=== PATIENT | female | born 1970 | race American Indian/Alaskan Native ===

== ENCOUNTER 2017-10-23 15:33 | Emergency (ER) | payer MEDICAID ==
[2017-10-23 16:29] VITALS: BP 99/66
--- NOTE | 2017-10-23 18:43 | Emergency Department Report ---
ED Rash HPI - HPI Chief Complaint: Skin Rash Stated Complaint: RASH Time Seen by Provider: 10/23/17 18:02 Duration: Today Location: Back, Abdomen, Upper Extremities Rash Symptoms: Yes Itching, Yes Peeling, No Facial Swelling, No Breathing Difficulties, No Choking Sensation, No Wheezing/Dyspnea, No Blistering, No Fever , No Lightheaded, No Malaise, No Myalgias Severity: moderate Other History: 47-year-old female past medical history anemia presents with complaint of approximately 3 weeks of itchy rash on upper extremities lower extremities chest abdomen and back. Patient denies fevers or chills. Patient is awake alert and oriented 3. States she has been taking Benadryl with minimal relief of her itchiness. Patient states that her dogs may have scabies. Denies any recent travel denies any new cosmetics denies any food allergies. Patient has visible excoriations on back abdomen and upper extremities. ED Review of Systems ROS: Stated complaint: RASH Other details as noted in HPI Constitutional: denies: chills, fever Eyes: denies: eye pain, eye discharge, vision change ENT: denies: ear pain, throat pain Respiratory: denies: cough, shortness of breath, wheezing Cardiovascular: denies: chest pain, palpitations Endocrine: no symptoms reported Gastrointestinal: denies: abdominal pain, nausea, diarrhea Genitourinary: denies: urgency, dysuria, discharge Musculoskeletal: denies: back pain, joint swelling, arthralgia Skin: denies: rash, lesions Neurological: denies: headache, weakness, paresthesias Psychiatric: denies: anxiety, depression Hematological/Lymphatic: denies: easy bleeding, easy bruising ED Past Medical Hx - Past Medical History Previous Medical History?: No Additional medical history: anemia, 3 vaginal delivery - Surgical History Hx Appendectomy: Yes Additional Surgical History: left eye, tubaligation - Social History Smoking Status: Never Smoker Substance Use Type: Alcohol - Medications Home Medications: Home Medications Medication Instructions Recorded Confirmed Last Taken Type Phenylephrine/Dm/Acetaminop/GG 1 each PO BID #14 tablet 03/02/15 Unknown Rx [Sudafed PE Pressure+Pain+Cold] Sea Salt/Citr/Cit AC/Bicarb/Av 1 each NS TID #14 powd.pack 03/02/15 Unknown Rx [Nasalcare Rinse Kit] Cetirizine HCl [ZyrTEC] 10 mg PO QDAY #30 capsule 10/23/17 Unknown Rx Hydroxyzine HCl 25 mg PO BID PRN #30 tablet 10/23/17 Unknown Rx Permethrin 5% [Acticin 5% CREAM] 1 applicatio TP ONCE #1 tube 10/23/17 Unknown Rx Triamcinolone 0.1% [Kenalog 0.1% 1 applic TP TID #1 tube 10/23/17 Unknown Rx OINT] Rash Exam - Exam General: Vital signs noted. No distress. Alert and acting appropriately. HEENT: No Periorbital Edema, No Conjuctival Injection, No Chemosis, No Perioral Edema, No Tongue Edema, No Uvular Edema, No Compromised Airway, No Drooling Lungs: Yes Good Air Exchange (Normal Breath Sounds), No Wheezes, No Ronchi, No Stridor, No Cough, No Labored Respirations, No Retractions, No Use of Accessory Muscles, No Other Abnormal Lung Sounds Heart: Yes Regular, No Murmur Skin: Yes Maculopapular Rash, Yes Excoriations, No Urticarial Rash, No Morbilliform rash, No Bulla(e), No Weeping, No Tenderness, No Erythema, No Edema , No Encrustations, No Other Other: Positive: Abdomen Normal, Neurologic Normal, Musculoskeletal Normal ED Course Vital Signs 10/23/17 16:25 Temperature 97.3 F L Pulse Rate 81 Respiratory 16 Rate Blood Pressure 99/66 O2 Sat by Pulse 100 Oximetry ED Medical Decision Making - Medical Decision Making A/P: Possible scabies rash 1-topical triamcinolone, hydroxyzine when necessary. Zyrtec 2-empiric course of permethrin cream as patient may have scabies. No other clear allergens identified 3-follow-up with dermatology and allergy specialists, primary care Critical care attestation.: If time is entered above; I have spent that time in minutes in the direct care of this critically ill patient, excluding procedure time. ED Disposition Clinical Impression: Scabies, Rash Disposition: - TO HOME OR SELFCARE Is pt being admited?: No Does the pt Need Aspirin: No Condition: Stable Instructions: Scabies (ED), Itchy Skin (ED) Prescriptions: Cetirizine HCl [ZyrTEC] 10 mg PO QDAY #30 capsule Hydroxyzine HCl 25 mg PO BID PRN #30 tablet PRN Reason: Itching Permethrin 5% [Acticin 5% CREAM] 1 applicatio TP ONCE #1 tube Triamcinolone 0.1% [Kenalog 0.1% OINT] 1 applic TP TID #1 tube Referrals: [facility] [Provider Group] - 3-5 Days [facility] [Provider Group] - 3-5 Days Time of Disposition: 18:41
== END 2017-10-23 18:51 | disposition home or self-care (01) ==
LOC: ED 15:33
DX: B86 Scabies (principal); R21 Rash and other nonspecific skin eruption; D64.9 Anemia, unspecified
CPT/HCPCS: 99282

== ENCOUNTER 2018-01-02 19:35 | Emergency (ER) | payer MEDICAID ==
[2018-01-02 20:21] VITALS: BP 116/67
[2018-01-02] MEDS ORDERED: MOTRIN PO ONE (23:57)
--- NOTE | 2018-01-03 00:03 | Emergency Department Report ---
ED ENT HPI - General Chief complaint: Earache Stated complaint: LEFT EAR,FACE PAIN Time Seen by Provider: 01/02/18 23:54 Source: patient Mode of arrival: Ambulatory Limitations: No Limitations - History of Present Illness Initial comments: 47-year-old female comes to the emergency room complaining of left ear pain for the last 2-3 days. Patient reports that she is having difficulty putting her ear buds into her ear. Patient denies any fever or nausea no vomiting. She reports that it feels like it is swollen and painful when she lays down. MD complaint: ear pain -: days(s) (3) Location: L ear Severity: moderate Severity scale (0 -10): 7 Quality: aching - Related Data Previous Rx's Medication Instructions Recorded Last Taken Type Phenylephrine/Dm/Acetaminop/GG 1 each PO BID #14 tablet 03/02/15 Unknown Rx [Sudafed PE Pressure+Pain+Cold] Sea Salt/Citr/Cit AC/Bicarb/Av 1 each NS TID #14 powd.pack 03/02/15 Unknown Rx [Nasalcare Rinse Kit] Cetirizine HCl [ZyrTEC] 10 mg PO QDAY #30 capsule 10/23/17 Unknown Rx Hydroxyzine HCl 25 mg PO BID PRN #30 tablet 10/23/17 Unknown Rx Permethrin 5% [Acticin 5% CREAM] 1 applicatio TP ONCE #1 tube 10/23/17 Unknown Rx Triamcinolone 0.1% [Kenalog 0.1% 1 applic TP TID #1 tube 10/23/17 Unknown Rx OINT] Neomycin/Polymyxin B/Hydrocort 4 drops OT QID #10 ml 01/02/18 Unknown Rx [Fvltobty-Ktktosgyz-Rt Ear Soln] Allergies Allergy/AdvReac Type Severity Reaction Status Date / Time No Known Allergies Allergy Verified 10/23/17 16:25 ED Dental HPI - General Chief complaint: Earache Stated complaint: LEFT EAR,FACE PAIN Time Seen by Provider: 01/02/18 23:54 Source: patient Mode of arrival: Ambulatory Limitations: No Limitations - Related Data Previous Rx's Medication Instructions Recorded Last Taken Type Phenylephrine/Dm/Acetaminop/GG 1 each PO BID #14 tablet 03/02/15 Unknown Rx [Sudafed PE Pressure+Pain+Cold] Sea Salt/Citr/Cit AC/Bicarb/Av 1 each NS TID #14 powd.pack 03/02/15 Unknown Rx [Nasalcare Rinse Kit] Cetirizine HCl [ZyrTEC] 10 mg PO QDAY #30 capsule 10/23/17 Unknown Rx Hydroxyzine HCl 25 mg PO BID PRN #30 tablet 10/23/17 Unknown Rx Permethrin 5% [Acticin 5% CREAM] 1 applicatio TP ONCE #1 tube 10/23/17 Unknown Rx Triamcinolone 0.1% [Kenalog 0.1% 1 applic TP TID #1 tube 10/23/17 Unknown Rx OINT] Neomycin/Polymyxin B/Hydrocort 4 drops OT QID #10 ml 01/02/18 Unknown Rx [Diislzxs-Dyknhsylb-Wa Ear Soln] Allergies Allergy/AdvReac Type Severity Reaction Status Date / Time No Known Allergies Allergy Verified 10/23/17 16:25 ED Review of Systems ROS: Stated complaint: LEFT EAR,FACE PAIN Other details as noted in HPI Constitutional: denies: chills, fever Eyes: denies: eye pain, eye discharge, vision change ENT: ear pain (left). denies: throat pain Respiratory: denies: cough, shortness of breath, wheezing Cardiovascular: denies: chest pain, palpitations Endocrine: no symptoms reported Gastrointestinal: denies: abdominal pain, nausea, diarrhea Genitourinary: denies: urgency, dysuria, discharge Musculoskeletal: denies: back pain, joint swelling, arthralgia Skin: denies: rash, lesions Neurological: denies: headache, weakness, paresthesias Psychiatric: denies: anxiety, depression Hematological/Lymphatic: denies: easy bleeding, easy bruising ED Past Medical Hx - Past Medical History Previous Medical History?: Yes Additional medical history: anemia, 3 vaginal delivery - Surgical History Past Surgical History?: Yes Hx Appendectomy: Yes Additional Surgical History: left eye, tubaligation - Social History Smoking Status: Current Every Day Smoker Substance Use Type: Alcohol - Medications Home Medications: Home Medications Medication Instructions Recorded Confirmed Last Taken Type Phenylephrine/Dm/Acetaminop/GG 1 each PO BID #14 tablet 03/02/15 Unknown Rx [Sudafed PE Pressure+Pain+Cold] Sea Salt/Citr/Cit AC/Bicarb/Av 1 each NS TID #14 powd.pack 03/02/15 Unknown Rx [Nasalcare Rinse Kit] Cetirizine HCl [ZyrTEC] 10 mg PO QDAY #30 capsule 10/23/17 Unknown Rx Hydroxyzine HCl 25 mg PO BID PRN #30 tablet 10/23/17 Unknown Rx Permethrin 5% [Acticin 5% CREAM] 1 applicatio TP ONCE #1 tube 10/23/17 Unknown Rx Triamcinolone 0.1% [Kenalog 0.1% 1 applic TP TID #1 tube 10/23/17 Unknown Rx OINT] Neomycin/Polymyxin B/Hydrocort 4 drops OT QID #10 ml 01/02/18 Unknown Rx [Vayoosng-Gbqxzkxsv-Oz Ear Soln] ED Physical Exam - General Limitations: No Limitations General appearance: alert, in no apparent distress - Head Head exam: Present: atraumatic, normocephalic - Eye Eye exam: Present: normal appearance - ENT ENT exam: Present: TM's normal bilaterally, other (left tragus mildly swollen and not erythematous no discharge coming.). Absent: normal external ear exam - Neck Neck exam: Present: normal inspection - Respiratory Respiratory exam: Present: normal lung sounds bilaterally. Absent: respiratory distress - Cardiovascular Cardiovascular Exam: Present: regular rate, normal rhythm. Absent: systolic murmur, diastolic murmur, rubs, gallop - Neurological Exam Neurological exam: Present: alert, oriented X3 - Psychiatric Psychiatric exam: Present: normal affect, normal mood ED Course Vital Signs 01/02/18 20:15 Temperature 98.0 F Pulse Rate 91 H Respiratory 17 Rate Blood Pressure 116/67 O2 Sat by Pulse 100 Oximetry ED Medical Decision Making - Medical Decision Making Patient has been evaluated by this provider fast track. Discussed the patient she has a mild case of externa otitis. Mostly of the tragus. Discussed the patient placed on antibiotics for a few days. She can take ibuprofen or Tylenol for pain. Also discussed the patient to clean her ear buds with alcohol to use. Patient verbalized understanding. Critical care attestation.: If time is entered above; I have spent that time in minutes in the direct care of this critically ill patient, excluding procedure time. ED Disposition Clinical Impression: Otitis externa Qualifiers: Otitis externa type: unspecified type Chronicity: acute Laterality: left Qualified Code(s): H60.502 - Unspecified acute noninfective otitis externa, left ear Disposition: DC-01 TO HOME OR SELFCARE Is pt being admited?: No Does the pt Need Aspirin: No Condition: Stable Instructions: Otitis Externa (ED) Additional Instructions: Please use antibiotic drops for the ear as prescribed. Please dry cleaner presser air but with alcohol prior to using. Please follow-up with the primary care provider if symptoms persist or gets worse. Prescriptions: Neomycin/Polymyxin B/Hydrocort [Fiqetypg-Rturaajda-Ch Ear Soln] 4 drops OT QID # 10 ml Referrals: JUAN TAN MD [Primary Care Provider] - 3-5 Days [facility] [Provider Group] - 3-5 Days Forms: Work/School Release Form(ED)
== END 2018-01-03 00:15 | disposition home or self-care (01) ==
LOC: ED 19:35
DX: H60.502 Unspecified acute noninfective otitis externa, left ear (principal); F17.200 Nicotine dependence, unspecified, uncomplicated; Z90.49 Acquired absence of other specified parts of digestive tract; Z98.51 Tubal ligation status; Z86.2 Personal history of diseases of the blood and blood-forming organs and certain disorders involving the immune mechanism
CPT/HCPCS: 99282

== ENCOUNTER 2019-04-08 11:16 | Emergency (ER) | payer MEDICAID ==
[2019-04-08 11:32] VITALS: BP 108/61
--- NOTE | 2019-04-08 11:33 | Event Note ---
ED Screening Note Date of service: 04/08/19 Time: 11:31 ED Screening Note: This is a 49 y.o. F. that presents to the ER with generalized rash and toothache. Reports tooth broke a few days ago and increasing pain. Attempt to see PCP at [facility] and unable to get appointment. This initial assessment/diagnostic orders/clinical plan/treatment(s) is/are subject to change based on patients health status, clinical progression and re- assessment by fellow clinical providers in the ED. Further treatment and workup at subsequent clinical providers discretion. Patient/guardian urged not to elope from the ED as their condition may be serious if not clinically assessed and managed. Initial orders include: ACC for further evaluation.
--- NOTE | 2019-04-08 12:16 | Emergency Department Report ---
ED General Adult HPI - General Chief complaint: Skin Rash Stated complaint: TOOTH PAIN/RASH Time Seen by Provider: 04/08/19 11:30 Source: patient Mode of arrival: Ambulatory Limitations: No Limitations - Related Data Previous Rx's Medication Instructions Recorded Last Taken Type Phenylephrine/Dm/Acetaminop/GG 1 each PO BID #14 tablet 03/02/15 Unknown Rx [Sudafed PE Pressure+Pain+Cold] Sea Salt/Citr/Cit AC/Bicarb/Av 1 each NS TID #14 powd.pack 03/02/15 Unknown Rx [Nasalcare Rinse Kit] Cetirizine HCl [ZyrTEC] 10 mg PO QDAY #30 capsule 10/23/17 Unknown Rx Permethrin 5% [Acticin 5% CREAM] 1 applicatio TP ONCE #1 tube 10/23/17 Unknown Rx Triamcinolone 0.1% [Kenalog 0.1% 1 applic TP TID #1 tube 10/23/17 Unknown Rx OINT] hydrOXYzine HCl [Hydroxyzine HCl] 25 mg PO BID PRN #30 tablet 10/23/17 Unknown Rx Neomycin/Polymyxin B/Hydrocort 4 drops OT QID #10 ml 01/02/18 Unknown Rx [Ljmixjpr-Kmqgbqgso-Bw Ear Soln] Allergies Allergy/AdvReac Type Severity Reaction Status Date / Time No Known Allergies Allergy Verified 04/08/19 11:16 ED Review of Systems ROS: Stated complaint: TOOTH PAIN/RASH Other details as noted in HPI ED Past Medical Hx - Past Medical History Additional medical history: anemia, 3 vaginal delivery - Surgical History Hx Appendectomy: Yes Additional Surgical History: left eye, tubaligation - Social History Smoking Status: Never Smoker Substance Use Type: Alcohol - Medications Home Medications: Home Medications Medication Instructions Recorded Confirmed Last Taken Type Phenylephrine/Dm/Acetaminop/GG 1 each PO BID #14 tablet 03/02/15 Unknown Rx [Sudafed PE Pressure+Pain+Cold] Sea Salt/Citr/Cit AC/Bicarb/Av 1 each NS TID #14 powd.pack 03/02/15 Unknown Rx [Nasalcare Rinse Kit] Cetirizine HCl [ZyrTEC] 10 mg PO QDAY #30 capsule 10/23/17 Unknown Rx Permethrin 5% [Acticin 5% CREAM] 1 applicatio TP ONCE #1 tube 10/23/17 Unknown Rx Triamcinolone 0.1% [Kenalog 0.1% 1 applic TP TID #1 tube 10/23/17 Unknown Rx OINT] hydrOXYzine HCl [Hydroxyzine HCl] 25 mg PO BID PRN #30 tablet 10/23/17 Unknown Rx Neomycin/Polymyxin B/Hydrocort 4 drops OT QID #10 ml 01/02/18 Unknown Rx [Vxsbtdml-Uafgbotwr-Hm Ear Soln] ED Physical Exam - General Limitations: No Limitations ED Course Vital Signs 04/08/19 11:30 Temperature 98 F Pulse Rate 76 Respiratory 20 Rate Blood Pressure 108/61 O2 Sat by Pulse 100 Oximetry Critical care attestation.: If time is entered above; I have spent that time in minutes in the direct care of this critically ill patient, excluding procedure time. ED Disposition Condition: Stable Referrals: KATY HARTMAN MD [Primary Care Provider] - 3-5 Days
--- NOTE | 2019-04-08 12:22 | Emergency Department Report ---
ED General Adult HPI - General Chief complaint: Skin Rash Stated complaint: TOOTH PAIN/RASH Time Seen by Provider: 04/08/19 11:30 Source: patient Mode of arrival: Ambulatory Limitations: No Limitations - History of Present Illness Initial comments: 49-year-old -[place] female presents to the emergency room for toothache and she's had for a month and a rash that she said for a while. Patient complains of her gums are swollen after she pulled a tooth with the front of her mouth secondary to started to break. Patient reports that her rash has come back that is itching. Patient reports that the medication that was prescribed to her previous visit here in 2018 had helped. Review of patient's chart. Patient was treated for scabies. Patient denies any allergies to medications currently taking no medications on a daily basis. Onset/Timin -: month(s) Quality: aching Consistency: intermittent Treatments Prior to Arrival: none - Related Data Previous Rx's Medication Instructions Recorded Last Taken Type Phenylephrine/Dm/Acetaminop/GG 1 each PO BID #14 tablet 03/02/15 Unknown Rx [Sudafed PE Pressure+Pain+Cold] Sea Salt/Citr/Cit AC/Bicarb/Av 1 each NS TID #14 powd.pack 03/02/15 Unknown Rx [Nasalcare Rinse Kit] Triamcinolone 0.1% [Kenalog 0.1% 1 applic TP TID #1 tube 10/23/17 Unknown Rx OINT] hydrOXYzine HCl [Hydroxyzine HCl] 25 mg PO BID PRN #30 tablet 10/23/17 Unknown Rx Neomycin/Polymyxin B/Hydrocort 4 drops OT QID #10 ml 01/02/18 Unknown Rx [Vsvxyomo-Wlaaavswd-Qb Ear Soln] Amoxicillin [Trimox CAP] 500 mg PO Q8H #20 capsule 04/08/19 Unknown Rx Cetirizine HCl [ZyrTEC 10mg cap] 10 mg PO QDAY #30 capsule 04/08/19 Unknown Rx Chlorhexidine Mouthwash [Peridex] 15 ml MM BID #1 bottle 04/08/19 Unknown Rx Ibuprofen [Motrin 600 MG tab] 600 mg PO Q8H PRN #15 tablet 04/08/19 Unknown Rx Permethrin 5% [Acticin 5% CREAM] 1 applicatio TP ONCE #1 tube 04/08/19 Unknown Rx Triamcinolone 0.1% [Kenalog 0.1% 1 applic TP TID #1 tube 04/08/19 Unknown Rx CREAM] Allergies Allergy/AdvReac Type Severity Reaction Status Date / Time No Known Allergies Allergy Verified 04/08/19 11:16 ED Review of Systems ROS: Stated complaint: TOOTH PAIN/RASH Other details as noted in HPI Comment: All other systems reviewed and negative ED Past Medical Hx - Past Medical History Additional medical history: anemia, 3 vaginal delivery - Surgical History Hx Appendectomy: Yes Additional Surgical History: left eye, tubaligation - Social History Smoking Status: Never Smoker Substance Use Type: Alcohol - Medications Home Medications: Home Medications Medication Instructions Recorded Confirmed Last Taken Type Phenylephrine/Dm/Acetaminop/GG 1 each PO BID #14 tablet 03/02/15 Unknown Rx [Sudafed PE Pressure+Pain+Cold] Sea Salt/Citr/Cit AC/Bicarb/Av 1 each NS TID #14 powd.pack 03/02/15 Unknown Rx [Nasalcare Rinse Kit] Triamcinolone 0.1% [Kenalog 0.1% 1 applic TP TID #1 tube 10/23/17 Unknown Rx OINT] hydrOXYzine HCl [Hydroxyzine HCl] 25 mg PO BID PRN #30 tablet 10/23/17 Unknown Rx Neomycin/Polymyxin B/Hydrocort 4 drops OT QID #10 ml 01/02/18 Unknown Rx [Qixbzsgb-Ugjzftlda-Dt Ear Soln] Amoxicillin [Trimox CAP] 500 mg PO Q8H #20 capsule 04/08/19 Unknown Rx Cetirizine HCl [ZyrTEC 10mg cap] 10 mg PO QDAY #30 capsule 04/08/19 Unknown Rx Chlorhexidine Mouthwash [Peridex] 15 ml MM BID #1 bottle 04/08/19 Unknown Rx Ibuprofen [Motrin 600 MG tab] 600 mg PO Q8H PRN #15 tablet 04/08/19 Unknown Rx Permethrin 5% [Acticin 5% CREAM] 1 applicatio TP ONCE #1 tube 04/08/19 Unknown Rx Triamcinolone 0.1% [Kenalog 0.1% 1 applic TP TID #1 tube 04/08/19 Unknown Rx CREAM] ED Physical Exam - General Limitations: No Limitations General appearance: alert, in no apparent distress - Head Head exam: Present: atraumatic, normocephalic - Eye Eye exam: Present: normal appearance - Expanded ENT Exam Expanded Teeth exam: Present: gingival enlargement - Neurological Exam Neurological exam: Present: alert, oriented X3 - Expanded Skin Exam Expanded Distribution of rash: back (lower), RUE, LLE Description of rash: Present: papular (hyperpigmented), purpuic. Absent: tenderness ED Course Vital Signs 04/08/19 11:30 Temperature 98 F Pulse Rate 76 Respiratory 20 Rate Blood Pressure 108/61 O2 Sat by Pulse 100 Oximetry ED Medical Decision Making - Medical Decision Making 49-year-old -[place] female presents to the emergency room for comes swelling mouth pain and pruritic rash. Patient appears to have scabies and gingivitis. Patient will be placed on antibiotics and Premarin Kenalog cetirizine. Critical care attestation.: If time is entered above; I have spent that time in minutes in the direct care of this critically ill patient, excluding procedure time. ED Disposition Clinical Impression: Gingivitis, Scabies Disposition: TO HOME OR SELFCARE Is pt being admited?: No Does the pt Need Aspirin: No Condition: Stable Instructions: Scabies (ED), Gingivitis (ED) Additional Instructions: Take medication as prescribed. Follow up with a dentist I have listed one below for your convenience as well as a jeep driver I have listed one below for your convenience. Prescriptions: Permethrin 5% [Acticin 5% CREAM] 1 applicatio TP ONCE #1 tube Triamcinolone 0.1% [Kenalog 0.1% CREAM] 1 applic TP TID #1 tube Ibuprofen [Motrin 600 MG tab] 600 mg PO Q8H PRN #15 tablet PRN Reason: Pain Chlorhexidine Mouthwash [Peridex] 15 ml MM BID #1 bottle Amoxicillin [Trimox CAP] 500 mg PO Q8H #20 capsule Cetirizine HCl [ZyrTEC 10mg cap] 10 mg PO QDAY #30 capsule Referrals: KATY HARTMAN MD [Primary Care Provider] - 3-5 Days
== END 2019-04-08 12:49 | disposition home or self-care (01) ==
LOC: ED 11:16
DX: B86 Scabies (principal); K05.10 Chronic gingivitis, plaque induced; Z98.51 Tubal ligation status; Z90.49 Acquired absence of other specified parts of digestive tract; Z79.899 Other long term (current) drug therapy
CPT/HCPCS: 99282

== ENCOUNTER 2019-08-26 13:27 | Emergency (ER) | payer MEDICAID ==
[2019-08-26 13:36] VITALS: BP 120/65
--- NOTE | 2019-08-26 13:45 | Emergency Department Report ---
ED Extremity Problem HPI - General Chief complaint: Extremity Injury, Lower Stated complaint: SEVERE LEG PAIN Time Seen by Provider: 08/26/19 13:41 Source: patient Mode of arrival: Ambulatory Limitations: No Limitations - History of Present Illness Initial comments: pt is a 49 yo female who presents to the ED with c/o bilateral leg pain that began a few months ago. she states that she has discomfort intermittently. she states that she had a slip and fall a month ago while she was on the dance floor and hit her left knee. she is ambulatory without difficulty. she denies any edema of the legs, no erythema, no increased warmth. she denies any PMHx or allergies to meds. - Related Data Previous Rx's Medication Instructions Recorded Last Taken Type Phenylephrine/Dm/Acetaminop/GG 1 each PO BID #14 tablet 03/02/15 Unknown Rx [Sudafed PE Pressure+Pain+Cold] Sea Salt/Citr/Cit AC/Bicarb/Av 1 each NS TID #14 powd.pack 03/02/15 Unknown Rx [Nasalcare Rinse Kit] Triamcinolone 0.1% [Kenalog 0.1% 1 applic TP TID #1 tube 10/23/17 Unknown Rx OINT] hydrOXYzine HCl [Hydroxyzine HCl] 25 mg PO BID PRN #30 tablet 10/23/17 Unknown Rx Neomycin/Polymyxin B/Hydrocort 4 drops OT QID #10 ml 01/02/18 Unknown Rx [Olnoldtr-Dcjmgweot-Kb Ear Soln] Amoxicillin [Trimox CAP] 500 mg PO Q8H #20 capsule 04/08/19 Unknown Rx Cetirizine HCl [ZyrTEC 10mg cap] 10 mg PO QDAY #30 capsule 04/08/19 Unknown Rx Chlorhexidine Mouthwash [Peridex] 15 ml MM BID #1 bottle 04/08/19 Unknown Rx Ibuprofen [Motrin 600 MG tab] 600 mg PO Q8H PRN #15 tablet 04/08/19 Unknown Rx Permethrin 5% [Acticin 5% CREAM] 1 applicatio TP ONCE #1 tube 04/08/19 Unknown Rx Triamcinolone 0.1% [Kenalog 0.1% 1 applic TP TID #1 tube 04/08/19 Unknown Rx CREAM] Naproxen [Naprosyn TAB] 500 mg PO BID PRN #14 tablet 08/26/19 Unknown Rx Allergies Allergy/AdvReac Type Severity Reaction Status Date / Time No Known Allergies Allergy Verified 04/08/19 11:16 ED Review of Systems ROS: Stated complaint: SEVERE LEG PAIN Other details as noted in HPI Comment: All other systems reviewed and negative ED Past Medical Hx - Past Medical History Additional medical history: anemia, 3 vaginal delivery - Surgical History Hx Appendectomy: Yes Additional Surgical History: left eye, tubaligation - Social History Smoking Status: Never Smoker Substance Use Type: Alcohol - Medications Home Medications: Home Medications Medication Instructions Recorded Confirmed Last Taken Type Phenylephrine/Dm/Acetaminop/GG 1 each PO BID #14 tablet 03/02/15 Unknown Rx [Sudafed PE Pressure+Pain+Cold] Sea Salt/Citr/Cit AC/Bicarb/Av 1 each NS TID #14 powd.pack 03/02/15 Unknown Rx [Nasalcare Rinse Kit] Triamcinolone 0.1% [Kenalog 0.1% 1 applic TP TID #1 tube 10/23/17 Unknown Rx OINT] hydrOXYzine HCl [Hydroxyzine HCl] 25 mg PO BID PRN #30 tablet 10/23/17 Unknown Rx Neomycin/Polymyxin B/Hydrocort 4 drops OT QID #10 ml 01/02/18 Unknown Rx [Xtvoooju-Gnanmvezw-Oi Ear Soln] Amoxicillin [Trimox CAP] 500 mg PO Q8H #20 capsule 04/08/19 Unknown Rx Cetirizine HCl [ZyrTEC 10mg cap] 10 mg PO QDAY #30 capsule 04/08/19 Unknown Rx Chlorhexidine Mouthwash [Peridex] 15 ml MM BID #1 bottle 04/08/19 Unknown Rx Ibuprofen [Motrin 600 MG tab] 600 mg PO Q8H PRN #15 tablet 04/08/19 Unknown Rx Permethrin 5% [Acticin 5% CREAM] 1 applicatio TP ONCE #1 tube 04/08/19 Unknown Rx Triamcinolone 0.1% [Kenalog 0.1% 1 applic TP TID #1 tube 04/08/19 Unknown Rx CREAM] Naproxen [Naprosyn TAB] 500 mg PO BID PRN #14 tablet 08/26/19 Unknown Rx ED Physical Exam - General Limitations: No Limitations General appearance: alert, in no apparent distress - Head Head exam: Present: atraumatic, normocephalic - Eye Eye exam: Present: normal appearance - ENT ENT exam: Present: mucous membranes moist - Extremities Exam Extremities exam: Present: other (mild left anterior knee TTP, FROM of the LLE without difficulty or pain elicicted, FROM of the RLE without difficulty or pain, no TTP of the RLE, neurovascularly intact, no deformities, no edema, no erythema, no increased warmth) - Neurological Exam Neurological exam: Present: alert, oriented X3 - Psychiatric Psychiatric exam: Present: normal affect, normal mood - Skin Skin exam: Present: warm, dry, intact ED Course Vital Signs 08/26/19 13:33 Temperature 97.9 F Pulse Rate 76 Respiratory 19 Rate Blood Pressure 120/65 O2 Sat by Pulse 100 Oximetry ED Medical Decision Making - Medical Decision Making pt is a 49 yo female who presents to the ED with c/o bilateral leg pain that began a few months ago. she states that she has discomfort intermittently. she states that she had a slip and fall a month ago while she was on the dance floor and hit her left knee. she is ambulatory without difficulty. she denies any edema of the legs, no erythema, no increased warmth. she denies any PMHx or allergies to meds. vitals are normal. on exam: mild left anterior knee TTP, FROM of the LLE without difficulty or pain elicicted, FROM of the RLE without difficulty or pain, no TTP of the RLE, neurovascularly intact, no deformities, no edema, no erythema, no increased warmth. no clinical signs of cellulitis, no clinical signs of DVT, no clinical signs of septic joint. pt is ambulatory without difficulty making fracture unlikely. pt given prescription for naproxen. advised pt to please take medication as prescribed as needed. may use ice for 15 minutes at a time, rest, elevation of the leg. follow up with an orthopedic do ctor in the next 3-5 days. return to the emergency room for any new or worsening symptoms. Critical care attestation.: If time is entered above; I have spent that time in minutes in the direct care of this critically ill patient, excluding procedure time. ED Disposition Clinical Impression: Bilateral leg pain Disposition: TO HOME OR SELFCARE Is pt being admited?: No Does the pt Need Aspirin: No Condition: Stable Instructions: Arthralgia (ED) Additional Instructions: please take medication as prescribed as needed. may use ice for 15 minutes at a time, rest, elevation of the leg. follow up with an orthopedic doctor in the next 3-5 days. return to the emergency room for any new or worsening symptoms. Prescriptions: Naproxen [Naprosyn TAB] 500 mg PO BID PRN #14 tablet PRN Reason: pain Referrals: VANESSA CHACON MD [Staff Physician] - 3-5 Days Time of Disposition: 13:51 Print Language: SLOVAK
== END 2019-08-26 14:23 | disposition home or self-care (01) ==
LOC: ED 13:27
DX: M79.605 Pain in left leg (principal); M79.604 Pain in right leg
CPT/HCPCS: 99282

== ENCOUNTER 2021-05-16 18:08 | Emergency (ER) | payer MEDICAID ==
[2021-05-16 19:38] VITALS: BP 114/64
--- NOTE | 2021-05-16 19:44 | Event Note ---
ED Screening Note Date of service: 05/16/21 Time: 19:43 ED Screening Note: 51-year-old female who denies any significant past medical history presents to the ER today with complaints of not feeling well. She states that symptoms started 1 week ago. She states that she has been having nausea, vomiting, diarrhea, generalized weakness, dizziness, generalized body aches, rhinorrhea nasal congestion, loss of taste and and feeling like she about to pass out when she walks. She admits that she has been around her grandson who was sick with "some virus" but she is not exactly sure what he was sick with. She states that she is not taking any Covid test since she has been sick. She also has not gotten a COVID-19 vaccine. This initial assessment/diagnostic orders/clinical plan/treatment(s) is/are subject to change based on patients health status, clinical progression and re- assessment by fellow clinical providers in the ED. Further treatment and workup at subsequent clinical providers discretion. Patient/guardian urged not to elope from the ED as their condition may be serious if not clinically assessed and managed. Initial orders include: Labs/chest x-ray
[2021-05-16 20:05] LABS: Basophils % (Auto) 0.7 % (0.0-1.8); Eosinophils % (Auto) 0.1 % (0.0-4.3); Hematocrit 44.1 % (30.3-42.9); Hemoglobin 15.2 gm/dl (10.1-14.3); Lymphocytes # (Auto) 0.6 K/mm3 (1.2-5.4); Lymphocytes % (Auto) 20.6 % (13.4-35.0); Mean Corpuscular HGB Conc 35 % (30-34); Mean Corpuscular Volume 90 fl (79-97); Monocytes # (Auto) 0.2 K/mm3 (0.0-0.8); Monocytes % (Auto) 7.1 % (0.0-7.3); Platelet Count 149 K/mm3 (140-440); Red Cell Distribution Width 14.2 % (13.2-15.2)
--- NOTE | 2021-05-16 20:20 | XRay Report ---
XR chest routine 2V INDICATION / CLINICAL INFORMATION: cough/weak. COMPARISON: None available. FINDINGS: SUPPORT DEVICES: None. HEART /PULMONARY VASCULATURE: No significant abnormality. LUNGS / PLEURA: Patchy bilateral pulmonary airspace opacities, involving the perihilar regions and bi lateral lung bases preferentially. No sizable pleural effusion. No pneumothorax. ADDITIONAL FINDINGS: No significant additional findings. IMPRESSION: Bilateral pulmonary airspace opacities, concerning for pneumonia. Findings may be seen with COVID. Signer Name: Luiz Parry MD Signed: 05/16/2021 8:15 PM Workstation Name: [id number]
[2021-05-16 20:24] LABS: Alanine Aminotransferase 12 units/L (7-56); Albumin 4.4 g/dL (3.9-5); BUN/Creatinine Ratio 18; Blood Urea Nitrogen 14 mg/dL (7-17); Calcium 9.9 mg/dL (8.4-10.2); Hemolysis Index 20
[2021-05-16 20:27] LABS: Bilirubin,Urine NEG (Negative); Blood,Urine SM (Negative); Color,Urine Amber (Yellow); Mucus,Urine 3+ /HPF; Protein,Urine >500 mg/dL (Negative)
== END 2021-05-16 22:17 ==
LOC: ED 18:08
DX: R11.10 Vomiting, unspecified (principal); R53.1 Weakness; Z53.21 Procedure and treatment not carried out due to patient leaving prior to being seen by health care provider
CPT/HCPCS: 36415; 71046; 80053; 81001; 83735; 84703; 85025; 87086